=== PATIENT | male | born 1950 | race Caucasian/White ===

== ENCOUNTER → 2016-07-02 | Outpatient (CLI) | payer BC ==
[~2016-07-02] VITALS: Ht 170.2 cm; Wt 59.0 kg
[~2016-07-02] MED LIST: ANACIN 400-321 EACH PO; ANDROGEL1.25 GM TD; CALCIUM-MAGNES1 EAC4 PO; CLONAZEPAM0.5 MG PO; CO Q1060 MG PO; CORAL CALCIUM1 EAC4 PO; DILAUDID4 MG PO; ECOTRIN325 MG PO; ERYTHROMYC200 MG/5 M PO; EXTRA STRENGTH500 M1 PO; FENOFIBRATE150 MG PO; FENTANYL1 EAC2 TD; FERREX 150150 MG PO; FOSAMAX70 MG PO; GABAPENTIN300 MG PO; LIPITOR20 MG PO; LITE COAT ASPI325 M1 PO; METHOCARBAMOL750 MG PO; MIACALCIN4 ML NS; MILK THISTLE200 M1 PO; NAPROXEN500 MG PO; PAROXETINE HCL20 MG PO; PHENERGAN12.5 MG PR; PROMETHAZINE HC25 M1 PO; PROVIGIL200 MG PO; RABEPRAZOLE SOD20 MG PO; SUMATRIPTAN SU100 MG PO; ZOLPIDEM TARTRA10 MG PO; lortab
== END | disposition home or self-care (01) ==
LOC: AMB 11:30
PROC: 0D798ZZ Dilation of Duodenum, Via Natural or Artificial Opening Endoscopic (ICD-10-PCS; principal; 2016-07-02)
DX: K31.1 Adult hypertrophic pyloric stenosis (principal); K22.2 Esophageal obstruction; K29.00 Acute gastritis without bleeding; K25.9 Gastric ulcer, unspecified as acute or chronic, without hemorrhage or perforation; K31.5 Obstruction of duodenum; K57.10 Diverticulosis of small intestine without perforation or abscess without bleeding; K31.84 Gastroparesis; R10.816 Epigastric abdominal tenderness; R10.13 Epigastric pain; R11.2 Nausea with vomiting, unspecified; K21.9 Gastro-esophageal reflux disease without esophagitis; E78.5 Hyperlipidemia, unspecified; Z79.82 Long term (current) use of aspirin; Z90.49 Acquired absence of other specified parts of digestive tract; Z80.3 Family history of malignant neoplasm of breast; Z80.41 Family history of malignant neoplasm of ovary; Z80.42 Family history of malignant neoplasm of prostate; Z80.8 Family history of malignant neoplasm of other organs or systems; Z83.42 Family history of familial hypercholesterolemia
CPT/HCPCS: J0330; J3010

== ENCOUNTER 2016-08-08 03:49 | Emergency (ER) | payer BC ==
[~2016-08-08] VITALS: Ht 170.2 cm; Wt 61.3 kg
[2016-08-08 05:20] VITALS: BP 143/71
== END 2016-08-08 05:59 | disposition home or self-care (01) ==
LOC: EME 03:49
DX: G43.909 Migraine, unspecified, not intractable, without status migrainosus (principal); E78.5 Hyperlipidemia, unspecified
CPT/HCPCS: 99281; 99285; J1100; J1200; J1885; J2765; J7030